=== PATIENT | female | born 1985 | race Caucasian/White ===

== ENCOUNTER 2016-10-21 21:33 | Emergency (ER) | payer BC ==
[~2016-10-21] VITALS: Ht 162.6 cm; Wt 77.3 kg
[2016-10-21 22:04] VITALS: Ht 162.6 cm; Wt 77.3 kg
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
[2016-10-22] MEDS ORDERED: IBUP-1542 PO (00:58)
[2016-10-22] MEDS ORDERED: HYDR-906 PO (00:58)
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
[2016-10-22 01:22] VITALS: BP 138/94; PULSE 99; RESP 18; TEMP 98.7
== END 2016-10-22 01:21 | disposition home or self-care (01) ==
LOC: FTE 21:33
DX: S19.9XXA Unspecified injury of neck, initial encounter (principal); V49.40XA Driver injured in collision with unspecified motor vehicles in traffic accident, initial encounter
CPT/HCPCS: 72040